=== PATIENT | female | born 1980 | race Caucasian/White ===

== ENCOUNTER 2017-09-24 20:22 | Emergency (ER) | payer OTHER ==
[2017-09-24] MEDS ORDERED: DIPHTH,PERTUSS(ACELL),TET 0.5 ML DISP.SYRIN IM ONE (20:26)
--- NOTE | 2017-09-24 20:26 | PDOC ---
Rapid Medical Evaluation Time Seen by Provider: 09/24/17 20:24 Medical Evaluation: Allergies Allergy/AdvReac Type Severity Reaction Status Date / Time codeine Allergy Verified 11/04/15 19:39 09/24/17 20:24 I have performed a brief in-person evaluation of this patient. The patient presents with a chief complaint of: laceration Pertinent physical exam findings: superficial laceration to pad of 4th digit of right hand I have ordered the following: boostrix The patient will proceed to the ED for further evaluation. Discharge Disposition - Diagnosis Laceration - Referrals Referrals: Nayana Lora MD [Primary Care Provider] - - Patient Instructions - Post Discharge Activity
[2017-09-24 20:29] VITALS: BP 136/80; PULSE 86; TEMP 98.3; BMI 41.3
--- NOTE | 2017-09-24 20:41 | PDOC ---
History of Present Illness - General Chief Complaint: Laceration Stated Complaint: LACERATION Time Seen by Provider: 09/24/17 20:24 History Source: Patient - History of Present Illness Location: reports: hands Past History - Past Medical History Allergies/Adverse Reactions: Allergies Allergy/AdvReac Type Severity Reaction Status Date / Time codeine Allergy Verified 11/04/15 19:39 Home Medications: Ambulatory Orders Lisinopril 10 mg PO ASDIR 09/24/17 Asthma: Yes COPD: No HTN: Yes Seizures: Yes - Surgical History Cholecystectomy: Yes - Immunization History Immunization Up to Date: Yes - Suicide/Smoking/Psychosocial Hx Smoking History: Never smoked Have you smoked in the past 12 months: No Information on smoking cessation initiated: No Hx Alcohol Use: No Drug/Substance Use Hx: No Substance Use Type: None Review of Systems - Review of Systems Integumentary: Yes: Other (laceration) *Physical Exam - Vital Signs Last Vital Signs Temp Pulse Resp BP Pulse Ox 98.3 F 86 17 136/80 100 09/24/17 20:25 09/24/17 20:25 09/24/17 20:25 09/24/17 20:25 09/24/17 20:25 - Physical Exam General Appearance: Yes: Appropriately Dressed. No: Apparent Distress HEENT: positive: Normal Voice Neck: positive: Supple Respiratory/Chest: negative: Respiratory Distress Extremity: positive: Other (~0.5 cm cutaneous lac to volar aspect of distal phalanx of R 4th digit) Integumentary: positive: Dry. negative: Warm Neurologic: positive: Fully Oriented, Alert, Normal Mood/Affect Procedures - Laceration/Wound Repair Right Finger Wound Length: to 2.5 cm Wound's Depth, Shape: superficial Irrigated w/ Saline: Yes Betadine Prep: Yes Wound Repaired With: Dermabond Medical Decision Making - Medical Decision Making 09/24/17 20:39 37-year-old female, no significant history here with laceration of R 4th finger after handling knife tonight. No numbness to site. See exam Cutaneous lac to R 4th digit No complications Tetanus UTD -dermabond -wound check as need in 2 days *DC/Admit/Observation/Transfer Diagnosis at time of Disposition: Laceration - Discharge Dispostion Disposition: HOME Condition at time of disposition: Good - Referrals Referrals: Nayana Lora MD [Primary Care Provider] - - Patient Instructions Printed Discharge Instructions: DI for Laceration Repair Additional Instructions: Antibiotic ointment should not be used because it can break down the adhesive prematurely. You may shower while the adhesive is on the skin, but should not soak or scrub the area for 7 to 10 days. Wet skin should be gently patted dry. The adhesive will peel off when the epithelial layer sloughs off, usually by 5 to 10 days Return to ED in 2 days for any concern for infection, worsening pain, redness, discharge, fever - Post Discharge Activity
== END 2017-09-24 21:10 | disposition home or self-care (01) ==
LOC: JER 20:22 → JERFT 20:22
PROC: 3E0234Z Introduction of Serum, Toxoid and Vaccine into Muscle, Percutaneous Approach (ICD-10-PCS; principal; 2017-09-24)
PROC: 0HQFXZZ Repair Right Hand Skin, External Approach (ICD-10-PCS; 2017-09-24)
DX: S61.214A Laceration without foreign body of right ring finger without damage to nail, initial encounter (principal); W26.0XXA Contact with knife, initial encounter; Y93.89 Activity, other specified; Y92.89 Other specified places as the place of occurrence of the external cause; Y99.8 Other external cause status
CPT/HCPCS: 12001; 90471; 90715; 99281-25

== ENCOUNTER 2019-05-08 01:19 | Observation (INO) | payer OTHER ==
--- NOTE | 2019-05-08 02:25 | PDOC ---
History of Present Illness - General Chief Complaint: Hives Stated Complaint: ALLERGIC REACTION (HIVES) Time Seen by Provider: 05/08/19 02:24 - History of Present Illness Initial Comments: 05/08/19 03:43 38 year old woman with a history of epilepsy (on trileptal), asthma and pre-DM who presents with hives on the arms, legs and torso and swelling of the R side of the upper and lower lip at 2100. She is unsure what the cause of her hives are. She denies any new food ingestions, new pets, new detergents, no new medications. She denies tightness or itching in the throat. Denies difficulty breathing, drooling or difficulty swallowing. Denies diarrhea or vomiting. She has had some allergies in the past very distantly and only reports an allergy to codeine. She has no other ocmplaints. ROS GENERAL/CONSTITUTIONAL: No fever or chills. No weakness. HEAD, EYES, EARS, NOSE AND THROAT: No sore throat. CARDIOVASCULAR: No chest pain or shortness of breath RESPIRATORY: No cough, wheezing, or hemoptysis. GASTROINTESTINAL: No nausea, vomiting, diarrhea or constipation. GENITOURINARY: No dysuria, frequency, or change in urination. MUSCULOSKELETAL: No joint or muscle swelling or pain. No neck or back pain. SKIN: No rash NEUROLOGIC: No headache, vertigo, loss of consciousness, or change in strength/ sensation. ENDOCRINE: No increased thirst. No abnormal weight change ALLERGIC/IMMUNOLOGIC: + hives or skin allergy. PE GENERAL: Awake, alert, and fully oriented, in no acute distress HEAD: No signs of trauma, normocephalic, atraumatic EYES: EOMI, sclera anicteric, conjunctiva clear ENT: oropharynx clear without exudates. Moist mucosa, no uvular swelling or deviation NECK: Normal ROM, supple LUNGS: No distress, speaks full sentences, clear to auscultation bilaterally HEART: Regular rate and rhythm, normal S1 and S2, no murmurs, rubs or gallops, peripheral pulses normal and equal bilaterally. ABDOMEN: Soft, nontender No guarding, no rebound. No masses EXTREMITIES : Normal inspection, Normal range of motion, no edema. No clubbing or cyanosis. NEUROLOGICAL: Cranial nerves II through XII grossly intact. Normal speech, normal gait, no focal sensorimotor deficits SKIN: Warm, Dry, normal turgor, + hives on the arms, legs, torso and back MDM DDX including but not limited to: allergic reaction ED Course: Patient with allergic reaction Dosed benadryl, decadron, and pepcid On reassessment patient with persistent itching and hives Atarax dosed Hives and itching spreading to face and forehead Will dose epi.3mg 1:1000 Plan for observation as patient with persistent hives and itching despite multiple medications over 4 hours of observation Sara Patel, PGY2 Emergency Medicine Past History - Past Medical History Allergies/Adverse Reactions: Allergies Allergy/AdvReac Type Severity Reaction Status Date / Time codeine Allergy Verified 05/08/19 02:29 Home Medications: Ambulatory Orders Lisinopril 10 mg PO ASDIR 09/24/17 EPINEPHrine (EPI-PEN 0.3MG) [Epipen 0.3MG -] 0.3 mg IM ASDIR #2 pens 05/08/19 Methylprednisolone [Medrol Dose Laron] 4 mg PO ASDIR #21 tablet 05/08/19 hydrOXYzine HCL LIQUID [Atarax Liquid -] 10 mg PO QID #120 ml 05/08/19 Asthma: Yes COPD: No HTN: Yes Seizures: Yes - Surgical History Cholecystectomy: Yes - Immunization History Immunization Up to Date: Yes - Psycho Social/Smoking Cessation Hx Smoking History: Never smoked Have you smoked in the past 12 months: No Hx Alcohol Use: No Drug/Substance Use Hx: No Substance Use Type: None Discharge - Discharge Information Problems reviewed: Yes Clinical Impression/Diagnosis: Allergic reaction Condition: Fair Disposition: HOME - Admission No - Additional Discharge Information Prescriptions: EPINEPHrine (EPI-PEN 0.3MG) [Epipen 0.3MG -] 0.3 mg IM ASDIR #2 pens hydrOXYzine HCL LIQUID [Atarax Liquid -] 10 mg PO QID #120 ml Methylprednisolone [Medrol Dose Laron] 4 mg PO ASDIR #21 tablet - Follow up/Referral Referrals: Nayana Lora MD [Primary Care Provider] - Becky Jack [Non Staff, Medical] - - Patient Discharge Instructions Patient Printed Discharge Instructions: DI for General Allergic Reactions Additional Instructions: You were seen in the ED for complaints of allergic reaction In the ED you were evaluated and treated for your symptoms Your results were There does not appear to be an acute need for immediate hospitalization. You are advised to follow up with your Primary Care Physician within 1 week. You were given a referral to Director Product Development and should follow up within 1 week. You were given a prescription for atarax, a medrol dose laron and an epipen which should be taken as prescribed Return to the ED immediately if you experience worsening allergic reaction, difficulty breathing, swelling of the tongue or itching in the throat. How To Use EpiPen Place the orange tip against the middle of the outer thigh. Swing and push the auto-injector firmly into the thigh until it clicks Hold firmly in place for 3 seconds count slowly, 1, 2, 3 - Post Discharge Activity
[2019-05-08 02:29] VITALS: TEMP 98.1; BMI 35.3
--- NOTE | 2019-05-08 02:32 | PDOC ---
Attending Attestation - Resident Resident Name: Sara Patel - ED Attending Attestation I have performed the following: I have examined & evaluated the patient, The case was reviewed & discussed with the resident, I agree w/resident's findings & plan - HPI HPI: 05/08/19 03:38 see resident hpi - Physicial Exam PE: 05/08/19 03:38 agree with resident exam - Medical Decision Making 05/08/19 03:39 38-year-old female with sudden onset of hives and lip swelling with no known allergic contact Plan for IV steroids, Pepcid and Benadryl in the emergency department We will observe, if airway remains intact will DC with a Medrol Dosepak as well as instructions for Benadryl Patient recommended to follow-up with an produce production team member for further evaluation as well
[2019-05-08] MEDS ORDERED: FAMOTIDINE 20 MG/50 ML IVPB 20 MG/50 ML MG IVPB ONE ×2 (03:36→03:43)
[2019-05-08] MEDS ORDERED: DEXAMETHASONE SOD PHOSPHATE 10 MG/1 ML VIAL IVPUSH ONE (03:37)
[2019-05-08] MEDS ORDERED: DEXAMETHASONE SOD PHOSPHATE 10 MG/1 ML VIAL ONE (03:42)
[2019-05-08] MEDS ORDERED: hydrOXYzine HCL 10 MG/5 ML LIQUID BULK BOTTLE PO ONE (04:39)
[2019-05-08] MEDS ORDERED: hydrOXYzine PAMOATE 25 MG CAPSULE (FP) PO ONE ×2 (05:15→05:18)
[2019-05-08] MEDS ORDERED: EPINEPHrine 1:1,000 0.3 MG/0.3 ML SYR IM ONE (05:39)
[2019-05-08] MEDS ORDERED: EPINEPHrine 1:10,000 (P-F SYR) 1 MG/10 ML DISP.SYRIN ONE (05:49)
[2019-05-08] MEDS ORDERED: EPINEPHrine/PF 1 MG/1 ML (1:1,000) AMPULE ONE (06:00)
--- NOTE | 2019-05-08 06:52 | HP ---
PCP: Nayana Lora CHIEF COMPLAINT: Hives HISTORY OF PRESENT ILLNESS: This is a 38 year old woman who comes to the ED complaining of hives. She says suddenly became itchy all over her body around 9pm. She noted some hives and so she took Benadryl and fell asleep. When she awoke, she was worse and also noted swelling of her hands, face, and lips with nasal congestion. She denies SOB, wheezing, stridor, abdominal pain. She did not feel that her throat was closing. She came to the ED and was treated with Benadryl 25 mg IVP, Pepcid 20 mg IV, and Decadron 10 mg IVP. There was no significant improvement and so she was given Vistaril 25 mg PO and epinephrine 0.3 mg IM. With this she started to improve. Currently her only complaint is that she feels shaky. She has been taking lisinopril for 3 years. She also takes HCTZ and a seizure medication. She says she tried a new vegetable last night prior to this episode but she cannot recall what it was. PAST MEDICAL HISTORY HTN Seizure disorder Asthma Pre-diabetes PAST SURGICAL HISTORY Cholecystectomy Social History: Smoking: Denies Alcohol: Denies Drugs: Denies Recent Travel: No Allergies Codeine Allergy (Verified 05/08/19 02:29) - causes seizures Home Medications Medication Instructions Recorded Lisinopril 10 mg PO DAILY 09/24/17 REVIEW OF SYSTEMS CONSTITUTIONAL: Present: edema. Absent: fever, chills, diaphoresis, generalized weakness, malaise, loss of appetite, weight change HEENT: Present: nasal congestion. Absent: rhinorrhea, throat pain, throat swelling, difficulty swallowing, mouth swelling, ear pain, eye pain, visual changes CARDIOVASCULAR: Absent: chest pain, syncope, palpitations, lightheadedness RESPIRATORY: Absent: cough, shortness of breath, dyspnea with exertion, orthopnea, wheezing, stridor, hemoptysis GASTROINTESTINAL: Absent: abdominal pain, abdominal distension, nausea, vomiting , diarrhea, constipation, melena, hematochezia GENITOURINARY: Absent: dysuria, frequency, urgency, hesitancy, hematuria, flank pain MUSCULOSKELETAL: Absent: myalgia, arthralgia, joint swelling, back pain, neck pain SKIN: Present: rash. Absent: itching, pallor HEMATOLOGIC/IMMUNOLOGIC: Absent: easy bleeding, easy bruising, lymphadenopathy, frequent infections ENDOCRINE: Absent: unexplained weight gain, unexplained weight loss, heat intolerance, cold intolerance NEUROLOGIC: Absent: headache, focal weakness or paresthesias, dizziness, unsteady gait, seizure, mental status changes, bladder or bowel incontinence PSYCHIATRIC: Absent: anxiety, depression, suicidal or homicidal ideation, hallucinations. PHYSICAL EXAMINATION Vital Signs - 24 hr 05/08/19 01:25 Temperature 98.1 F Pulse Rate 85 Respiratory 17 Rate Blood Pressure 116/87 O2 Sat by Pulse 97 Oximetry (%) GENERAL: Awake, alert, and fully oriented, in no acute distress. HEAD: (+) Swelling of face and lips. EYES: Pupils equal, round and reactive to light, extraocular movements intact, sclerae anicteric, conjunctivae clear. EARS, NOSE, THROAT: Ears normal, nares patent, oropharynx clear without exudates. Moist mucous membranes. NECK: Normal range of motion, supple without lymphadenopathy, JVD, or masses. LUNGS: Breath sounds equal, clear to auscultation bilaterally. No wheezes, and no crackles. No accessory muscle use. HEART: Regular rate and rhythm, normal S1 and S2 without murmur, rub or gallop. ABDOMEN: Obese, soft, nontender, not distended, normoactive bowel sounds, no guarding, no rebound, no masses. No hepatomegaly or splenomegaly. MUSCULOSKELETAL: Normal range of motion at all joints. No bony deformities or tenderness. No CVA tenderness. UPPER EXTREMITIES: 2+ pulses, warm, well-perfused. No cyanosis. No clubbing. (+ ) Swelling of hands. LOWER EXTREMITIES: 2+ pulses, warm, well-perfused. No calf tenderness. No peripheral edema. NEUROLOGICAL: Cranial nerves II-XII intact. Normal speech. Gait not observed. PSYCHIATRIC: Cooperative. Good eye contact. Appropriate mood and affect. SKIN: Warm, dry, normal turgor, no rashes or lesions noted, normal capillary refill. ASSESSMENT/PLAN: This is a 38 year old woman with a history of HTN, seizure disorder, asthma, pre -diabetes who presented to the ED with sudden-onset of hives followed by swelling of her hands, lips, and face. 1. Angioedema and hives - Improving after epinephrine - Benadryl as needed - Discontinue lisinopril - Patient will find out which new vegetable she ate prior to this episode - If she continues to improve, she can be discharged later today with EpiPen 2. HTN - Discontinue lisinopril - Hold HCTZ for now as BP was low 3. Seizure disorder - Patient is not sure of which seizure medication she is taking 4. Asthma - Stable 5. Pre-diabetes - Monitor fingersticks as patient was treated with Decadron Family Medical History Family History: Unremarkable Visit type - Emergency Visit Emergency Visit: Yes ED Registration Date: 05/08/19 Care time: The patient presented to the Emergency Department on the above date and was hospitalized for further evaluation of their emergent condition. - New Patient This patient is new to me today: Yes Date on this admission: 05/08/19 - Critical Care Critical Care patient: No
[2019-05-08] MEDS ORDERED: ONDANSETRON 4 MG/2 ML VIAL IVPUSH PRN (06:54)
[2019-05-08] MEDS ORDERED: INSULIN SLIDING SCALE (NOVOLOG) 1 VIAL SQ SCH (07:00)
[2019-05-08 07:50] LABS: BASO % 0.1 % (0-2.0); EOS % 0.1 % (0-4.5); HEMATOCRIT 32.6 % (32.4-45.2); HEMOGLOBIN 10.9 GM/dL (10.7-15.3); LYMPH % 9.3 % (8-40); MCH 28.6 pg (25.7-33.7); MCHC 33.5 g/dl (32.0-36.0); MEAN CELL VOLUME 85.2 fl (80-96); MEAN PLT VOLUME 7.3 fl (7.5-11.1); MONO % 0.6 % (3.8-10.2); NEUT % 89.9 % (42.8-82.8); PLATELET COUNT 452 K/MM3 (134-434); RBC 3.82 M/mm3 (3.60-5.2); RDW 13.7 % (11.6-15.6); WHITE BLOOD COUNT 13.3 K/mm3 (4.0-10.0)
[2019-05-08 08:13] LABS: ALBUMIN 3.9 g/dl (3.4-5.0); BILIRUBIN,TOTAL 0.3 mg/dL (0.2-1); BLOOD UREA NITROGEN 14.1 mg/dL (7-18); CALCIUM 9.1 mg/dL (8.5-10.1); POTASSIUM 3.7 mmol/L (3.5-5.1); TOT PROT 7.4 g/dl (6.4-8.2)
[2019-05-08] MEDS ORDERED: predniSONE 20 MG TABLET (UD) PO ONE (09:07)
--- NOTE | 2019-05-08 09:21 | DS ---
Physical Exam: SUBJECTIVE: Patient seen and examined in the ED. Patient reports feeling much better, no nausea, no vomiting, no difficulty with breathing, no chest pain. Had breakfast (eggs and coffee) without difficulty swallowing. She has been allergy tested a year ago, does not recall the results but told she was allergic to something. She agrees to follow up with personal shopper. OBJECTIVE: no airway compromise, tolerated breakfast, back to her baseline very mild edema of upper lip, no edema/swelling on inspection of oral cavity lungs clear mild wbc elevation s/p steriods Vital Signs Period Temp Pulse Resp BP Sys/Bob Pulse Ox Last 24 Hr 98.1 F 85 17 116/87 97 PHYSICAL EXAM GENERAL: The patient is awake, alert, and fully oriented, in no acute distress. HEAD: Normal with no signs of trauma. upper lip with mild swelling, no airway edema/swelling EYES: PERRL, extraocular movements intact, sclera anicteric, conjunctiva clear. ENT: oropharynx clear without exudates, moist mucous membranes. NECK: Trachea midline, full range of motion, supple. LUNGS: Breath sounds equal, clear to auscultation bilaterally, no wheezes, no crackles, no accessory muscle use. HEART: Regular rate and rhythm ABDOMEN: Soft, nontender, nondistended, normoactive bowel sounds, no guarding, no rebound, no hepatosplenomegaly, no masses. EXTREMITIES: left hand with mild edema NEUROLOGICAL: Normal speech, gait not observed. PSYCH: Normal mood, normal affect. SKIN: Warm, dry, normal turgor, no rashes or lesions noted. LABS Laboratory Results - last 24 hr 05/08/19 05/08/19 07:30 07:30 WBC 13.3 H RBC 3.82 Hgb 10.9 Hct 32.6 D MCV 85.2 MCH 28.6 MCHC 33.5 RDW 13.7 Plt Count 452 H D MPV 7.3 L D Absolute Neuts (auto) 12.0 H Neutrophils % 89.9 H D Lymphocytes % 9.3 D Monocytes % 0.6 L D Eosinophils % 0.1 D Basophils % 0.1 Nucleated RBC % 0 Sodium 138 Potassium 3.7 Chloride 104 Carbon Dioxide 29 Anion Gap 6 L BUN 14.1 Creatinine 1.0 Est GFR (CKD-EPI)AfAm 83.94 Est GFR (CKD-EPI)NonAf 72.42 Random Glucose 203 H Calcium 9.1 Total Bilirubin 0.3 AST 17 ALT 19 Alkaline Phosphatase 61 Total Protein 7.4 Albumin 3.9 HOSPITAL COURSE: Date of Admission:05/08/19 Date of Discharge: 05/08/19 Minutes to complete discharge: 45 Discharge Summary Problems reviewed: Yes Reason For Visit: ALLERGIC REACTION Current Active Problems Allergic reaction (Acute) Condition: Improved - Instructions Diet, Activity, Other Instructions: Mrs Connell. You were observed at [facility] for possible reaction to either food or a medication. Here are our discharge instructions: Allergy: We treated you with an epinepherine, sterioids and benadryl. We will be sending you home with a Prednisone taper as follows Prednisone 40mg today before you go home Prednisone 40mg tomorrow 05/09/2019 in the morning with breakfast Prednisone 30mg on 05/10/2019 with breakfast Prednisone 20mg on 05/11/2009 with breakfast Prednisone 10mg on 05/12/2019 with breakfast - This is your last dose of prednisone Take Benadryl every 6 hours as needed for the next 48 hours, but careful not to drive while using Benadryl We will call an Epipen to your home pharmacy. [facility] for [facility] Blood Pressure: Your blood pressure has been in normal ranges here, stop taking the Lisinopril. You can continue taking the HCTZ I have called in a blood pressure cuff for your home use so that you can monitor your blood pressure at home, please take your blood pressure every morning and record the number. Show your primary care doctor your blood pressure readings so that they can adjust your medications. Thank you for allowing us to care for you. Questions? Please call me [facility] COMMUNITY PLANNING TECHNICIAN [phone] [facility] Referrals: Nayana Lora MD [Primary Care Provider] - Kayleen Ag MD [Staff Physician] - Disposition: HOME - Home Medications Comprehensive Discharge Medication List: Ambulatory Orders Amlodipine Besylate [Norvasc -] 5 mg PO DAILY #30 tablet 05/08/19 Blood Pressure Test Kit-Wrist [[employer] Wrist Bp Monitor] 1 each MC DAILY #1 kit 05/08/19 Epinephrine [Epipen 2-Laron] 0.3 mg IM ASDIR #1 kit 05/08/19 Prednisone 40 mg PO DAILY #20 tablet 05/08/19 Problem List - Problems (1) Allergic reaction Assessment/Plan: Treated in the ED with dexamethsone, epinephrine, benadryl airway patent, lungs clear, no difficulty swallowing, no hives seen start prednisone taper, give first dose now discharge with referrals to ENT Patient states she ate asparagus and thinks it may have caused her to have a reaction. advised her to stop lisinopril. will adjust her allergy list here. Code(s): T78.40XA - ALLERGY, UNSPECIFIED, INITIAL ENCOUNTER (2) Hypertension Assessment/Plan: stop lisinopril as it may have caused an allergic reaction Bp stable here start on norvac 5, will have her monitor her BP at home also follow up with pcp Code(s): I10 - ESSENTIAL (PRIMARY) HYPERTENSION (3) Pre-diabetes Assessment/Plan: outpatient follow up with pcp Code(s): R73.03 - PREDIABETES (4) Seizure disorder Assessment/Plan: continue home medications Code(s): G40.909 - EPILEPSY, UNSP, NOT INTRACTABLE, WITHOUT STATUS EPILEPTICUS This patient is new to me today: Yes Date on this admission: 05/08/19 Emergency Visit: Yes ED Registration Date: 05/08/19 Care time: The patient presented to the Emergency Department on the above date and was hospitalized for further evaluation of their emergent condition. Critical Care patient: No - Discharge Referral [facility]erred to [facility] Med P.C.: No
[2019-05-08 10:33] VITALS: PULSE 90
[2019-05-08 10:50] VITALS: BP 133/66
== END 2019-05-08 11:00 | disposition home or self-care (01) ==
LOC: JER 01:19 → JERBED 06:44
PROVIDERS: ADMIT Internal Medicine; ATTEND Nurse Practitioner Family
PROC: 3E033GC Introduction of Other Therapeutic Substance into Peripheral Vein, Percutaneous Approach (ICD-10-PCS; principal; 2019-05-08)
PROC: 3E023GC Introduction of Other Therapeutic Substance into Muscle, Percutaneous Approach (ICD-10-PCS; 2019-05-08)
PROC: 3E023GC Introduction of Other Therapeutic Substance into Muscle, Percutaneous Approach (ICD-10-PCS; 2019-05-08)
PROC: 3E013VG Introduction of Insulin into Subcutaneous Tissue, Percutaneous Approach (ICD-10-PCS; 2019-05-08)
DX: L50.0 Allergic urticaria (principal); T78.3XXA Angioneurotic edema, initial encounter; I10 Essential (primary) hypertension; G40.909 Epilepsy, unspecified, not intractable, without status epilepticus; J45.909 Unspecified asthma, uncomplicated; R73.03 Prediabetes; Z88.5 Allergy status to narcotic agent
CPT/HCPCS: 36415; 80053; 83036; 85025; 96365; 96372; 96375; 99283-25; G0378; J1100

== ENCOUNTER 2019-05-31 06:06 | Day surgery (SDC) | payer OTHER ==
[2019-05-30 15:23] VITALS: BMI 37.2
[2019-05-31] MEDS ORDERED: MIDAZOLAM HCL 2 MG/2 ML SINGLE DOSE VIAL ONE ×2 (07:18→07:19)
[2019-05-31] MEDS ORDERED: PROPOFOL 20 ML ONE (07:18)
--- NOTE | 2019-05-31 07:40 | HP ---
Admitting History and Physical - Admission Chief Complaint: Prolonged menstrual bleeding History of Present Illness: 38 yo Para 0, with h/o hypertension, asthma and seizure, is pre op for D&C hysteroscopy. She was diagnosed with complex endometrial hyperplasia after endometrial biopsy for vaginal bleeding. History Source: Patient Limitations to Obtaining History: No Limitations - Past Medical History ...LMP: 04/09/19 ...LMP Comment: bleeding for a month ...: No ...Para: 0 Heme/Onc: Yes: Anemia - Past Surgical History Past Surgical History: Yes: None - Smoking History Smoking history: Never smoked Have you smoked in the past 12 months: No - Alcohol/Substance Use Hx Alcohol Use: Yes (occas) - Social History Usual Living Arrangement: Yes: Alone History of Recent Travel: No Home Medications - Allergies Allergies/Adverse Reactions: Allergies Allergy/AdvReac Type Severity Reaction Status Date / Time amlodipine Allergy "feet Verified 05/31/19 06:56 swell" asparagus Allergy "hives" Verified 05/31/19 06:56 codeine Allergy "seizure" Verified 05/31/19 06:56 lisinopril Allergy "?hives" Verified 05/31/19 06:56 - Home Medications Home Medications: Ambulatory Orders Cetirizine HCl 10 mg PO PRN PRN 05/30/19 Megestrol Acetate Oral Susp [Megace Oral Suspension -] 400 mg PO BID 05/30/19 Oxcarbazepine 150 mg PO BID 05/30/19 Family Medical History Family History: Unremarkable Review of Systems - Review of Systems Constitutional: reports: No Symptoms Eyes: reports: No Symptoms HENT: reports: No Symptoms Neck: reports: No Symptoms Cardiovascular: reports: No Symptoms Respiratory: reports: No Symptoms Gastrointestinal: reports: No Symptoms Genitourinary: reports: Vaginal Bleeding Breasts: reports: No Symptoms Reported Musculoskeletal: reports: No Symptoms Neurological: denies: Headache Psychiatric: reports: No Symptoms Pain Intensity: 0 Physical Examination Vital Signs: Vital Signs Temperature 98.4 F 05/31/19 06:54 Pulse Rate 79 05/31/19 06:54 Respiratory Rate 05/31/19 06:54 Blood Pressure 133/71 05/31/19 06:54 O2 Sat by Pulse Oximetry (%) 99 05/31/19 06:45 Constitutional: No: No Distress Eyes: Yes: Conjunctiva Clear HENT: Yes: Atraumatic Neck: Yes: Supple Cardiovascular: Yes: Regular Rate and Rhythm Respiratory: Yes: Regular Gastrointestinal: Yes: Normal Bowel Sounds Breast(s): Yes: WNL Musculoskeletal: Yes: WNL Extremities: Yes: WNL Integumentary: Yes: WNL Neurological: Yes: Alert, Oriented ...Motor Strength: WNL Psychiatric: Yes: Alert, Oriented Problem List - Problems (1) Endometrial hyperplasia, complex Problems reviewed: Yes Code(s): N85.01 - BENIGN ENDOMETRIAL HYPERPLASIA Assessment/Plan Complex endometrial hyperplasia Pre op for D&C hysteroscopy Consent signed Anesthesia to see patient
[2019-05-31] MEDS ORDERED: DEXAMETHASONE SOD PHOSPHATE 4 MG/1 ML VIAL ONE (07:47)
[2019-05-31] MEDS ORDERED: KETOROLAC TROMETHAMINE 30 MG/1 ML VIAL ONE (08:01)
[2019-05-31] MEDS ORDERED: ONDANSETRON 4 MG/2 ML VIAL IVPUSH PRN (08:03)
[2019-05-31] MEDS ORDERED: oxyCODONE HCL 5 MG TABLET PO PRN (08:03)
--- NOTE | 2019-05-31 08:13 | OP ---
Operative Note - Note: Operative Date: 05/31/19 Pre-Operative Diagnosis: Complex endometrial hyperplasia Operation: D&C Hysteroscopy Findings: Multiple polyps Post-Operative Diagnosis: Same as Pre-op Surgeon: Ayana Adan Anesthesia: General Specimens Removed: Endometrial curettings Estimated Blood Loss (mls): 5
[2019-05-31] MEDS ORDERED: LACTATED RINGERS SOLUTION 1,000 ML IV SCH (08:15)
[2019-05-31] MEDS ORDERED: ONDANSETRON 4 MG/2 ML VIAL ONE (08:32)
[2019-05-31] MEDS ORDERED: ONDANSETRON 4 MG/2 ML VIAL IVPUSH ONE (08:45)
[2019-05-31 12:30] VITALS: BP 130/79; PULSE 80; TEMP 98
--- NOTE | 2019-06-01 15:07 | OP ---
DATE OF OPERATION: 05/31/2019 PREOPERATIVE DIAGNOSIS: Complex endometrial hyperplasia. POSTOPERATIVE DIAGNOSIS: Complex endometrial hyperplasia. PROCEDURE: Dilatation and curettage, hysteroscopy. SURGEON: Ayana Adan MD ANESTHESIA: General. COMPLICATIONS: None. ESTIMATED BLOOD LOSS: 5 mL. DESCRIPTION OF PROCEDURE: Patient was taken to the operating room where general anesthesia was administered. Patient was then placed in lithotomy position. She was then prepped and draped in proper sterile fashion. A weighted speculum was placed in the vagina. The anterior lip of the cervix was grasped with single-tooth tenaculum. Then, a 5-mm hysteroscope was then gently introduced into the uterine cavity. The cavity was visualized, and both ostia were visualized. There were several polyps noted in the cavity. A sharp curettage was then performed, and using polyp forceps, several polyps were removed from the cavity. A second look with the hysteroscope was then made, and then, once finished, the instruments were removed. The patient was taken out of lithotomy position. She was taken to PACU in stable condition. PATHOLOGY: Endometrial curettings. Hernandez [id number]
--- NOTE | 2019-06-01 15:45 | PATH ---
Surgical Pathology Report Patient Name: NORA LACKEY Med. Rec. #: [id number] /Age/Gender: 1980 (Age: 38) / F Account: [id number] Location: [facility] Taken: 05/31/2019 Received: 05/31/2019 Reported: 06/01/2019 Physicians: Ayana Adan M.D. Specimen(s) Received ENDOMETRIAL CURETTINGS AND POLYPS Clinical History Complex endometrial hyperplasia Final Diagnosis ENDOMETRIAL CURETTINGS AND POLYP: FRAGMENTS OF ENDOMETRIAL POLYP WITH FOCAL INFARCTION. SEPARATE FEW FRAGMENTS OF PROLIFERATIVE ENDOMETRIAL GLANDS WITHOUT STROMA. SEPARATE FRAGMENTS OF ENDOCERVICAL TISSUE WITH SQUAMOUS METAPLASIA. Comment: Endometrial polyps show angulated and cystically dilated glands without atypia. History of complex endometrial hyperplasia noted. Intradepartmental case reviewed with concordance on diagnosis, 06/01/2019. Electronically Signed Cherelle Rivera M.D. Gross Description Received in formalin labeled "endometrial curettings and polyp," is a 4.5 x 4.0 x 0.3 cm aggregate of baldwin-pink soft tissue fragments. The formalin is filtered and the specimen is entirely submitted in 4 cassettes. DL/05/31/2019 saudi/05/31/2019
== END 2019-05-31 12:33 | disposition home or self-care (01) ==
LOC: JASU-SURG 06:06
PROVIDERS: ATTEND Obstetrics & Gynecology
PROC: 0UDB8ZX Extraction of Endometrium, Via Natural or Artificial Opening Endoscopic, Diagnostic (ICD-10-PCS; principal; 2019-05-31 07:30)
DX: N85.01 Benign endometrial hyperplasia (principal)
CPT/HCPCS: 84703; 94760

== ENCOUNTER 2021-02-22 19:17 | Emergency (ER) | payer OTHER ==
[2021-02-22 19:41] VITALS: BP 131/80; PULSE 101; TEMP 98.5; BMI 41.1
[2021-02-22] MEDS ORDERED: FAMOTIDINE 20 MG TABLET PO ONE (21:03)
[2021-02-22] MEDS ORDERED: FAMOTIDINE 20 MG TABLET ONE (21:06)
[2021-02-22 21:31] LABS: BASO % 0.5 % (0-2.0); EOS % 1.5 % (0-4.5); HEMATOCRIT 37.1 % (32.4-45.2); HEMOGLOBIN 12.8 GM/dL (10.7-15.3); MCHC 34.6 g/dl (32.0-36.0); MEAN CELL VOLUME 78.1 fl (80-96); MEAN PLT VOLUME 7.3 fl (7.5-11.1); MONO % 4.7 % (3.8-10.2); NEUT % 71.3 % (42.8-82.8); PLATELET COUNT 365 10^3/uL (134-434); RBC 4.75 M/mm3 (3.60-5.2); RDW 14.7 % (11.6-15.6); WHITE BLOOD COUNT 10.9 K/mm3 (4.0-10.0)
[2021-02-22 21:41] LABS: EPI CELLS 2 /uL (0-25.1); HYALINE CASTS 0 /uL (0-3.1); PH,URINE 6.5 (5.0-8.0); URINE APPEARANCE CLEAR; URINE BACTERIA 2 /uL (0-1359); URINE BILIRUBIN NEGATIVE (NEGATIVE); URINE COLOR YELLOW; URINE GLUCOSE (UA) NEGATIVE (NEGATIVE); URINE KETONE NEGATIVE (NEGATIVE); URINE LEUK ESTERASE NEGATIVE (NEGATIVE); URINE NITRITE NEGATIVE (NEGATIVE); URINE PROTEIN NEGATIVE (NEGATIVE); URINE RBC 27 /uL (0-23.9); URINE UROBILINOGEN 0.2 mg/dL (0.2-1.0); URINE WBC 3 /uL (0-25.8)
[2021-02-22 21:45] LABS: CALCIUM 9.1 mg/dL (8.5-10.1)
[2021-02-22 21:47] LABS: BLOOD UREA NITROGEN 10.4 mg/dL (7-18)
[2021-02-22 21:50] LABS: BILIRUBIN,TOTAL 0.4 mg/dL (0.2-1)
[2021-02-22 21:51] LABS: TOT PROT 8.4 g/dl (6.4-8.2)
== END 2021-02-22 21:30 | disposition left against medical advice (07) ==
LOC: JER 19:17 → JERFT 19:17
DX: H00.015 Hordeolum externum left lower eyelid (principal); R10.13 Epigastric pain
CPT/HCPCS: 36415; 80053; 81003; 84703; 85025; 87086; 99283-25

== ENCOUNTER 2021-03-17 12:25 | Emergency (ER) | payer OTHER ==
[2021-03-17 12:38] VITALS: BP 136/73; PULSE 100; TEMP 98.6; BMI 41.1
[2021-03-17] MEDS ORDERED: ONDANSETRON *ODT* 4 MG TABLET SL ONE (12:55)
[2021-03-17] MEDS ORDERED: ONDANSETRON *ODT* 4 MG TABLET ONE (12:56)
== END 2021-03-17 13:33 ==
LOC: JERFT 12:25
DX: Z77.098 Contact with and (suspected) exposure to other hazardous, chiefly nonmedicinal, chemicals (principal)
CPT/HCPCS: 99283-25; Q0162

== ENCOUNTER 2021-11-10 15:09 | Emergency (ER) | payer OTHER ==
[2021-11-10 15:22] VITALS: BP 120/78; PULSE 94; TEMP 98.3; BMI 41.0
[2021-11-10] MEDS ORDERED: ONDANSETRON *ODT* 4 MG TABLET SL ONE (16:26)
[2021-11-10] MEDS ORDERED: ONDANSETRON *ODT* 4 MG TABLET ONE (16:28)
== END 2021-11-10 18:35 | disposition home or self-care (01) ==
LOC: JER 15:09
DX: R11.0 Nausea (principal)
CPT/HCPCS: 93005; 93010; 99283-25; Q0162

== ENCOUNTER 2022-09-19 14:51 | Emergency (ER) | payer OTHER ==
[2022-09-19 15:18] VITALS: TEMP 98.9; BMI 43.8
[2022-09-19] MEDS ORDERED: SODIUM CHLORIDE 0.9% 500 ML INFUS.BAG IV ONE (15:54)
[2022-09-19 15:59] LABS: BASO % 0.3 % (0-2.0); EOS % 1.3 % (0-4.5); HEMATOCRIT 36.3 % (32.4-45.2); HEMOGLOBIN 12.2 GM/dL (10.7-15.3); LYMPH % 14.4 % (8-40); MCH 27.2 pg (25.7-33.7); MCHC 33.5 g/dl (32.0-36.0); MEAN CELL VOLUME 81.3 fl (80-96); MEAN PLT VOLUME 7.1 fl (7.5-11.1); MONO % 5.1 % (3.8-10.2); NEUT % 78.9 % (42.8-82.8); PLATELET COUNT 352 10^3/uL (134-434); RBC 4.47 M/mm3 (3.60-5.2); RDW 14.9 % (11.6-15.6); WHITE BLOOD COUNT 10.2 K/mm3 (4.0-10.0)
[2022-09-19 16:07] LABS: POTASSIUM 3.5 mmol/L (3.5-5.1)
[2022-09-19 16:09] LABS: CALCIUM 8.8 mg/dL (8.5-10.1)
[2022-09-19 16:10] LABS: ALBUMIN 3.5 g/dl (3.4-5.0); BLOOD UREA NITROGEN 12.8 mg/dL (7-18); MAGNESIUM 2.3 mg/dL (1.8-2.4)
[2022-09-19 16:13] LABS: CREATININE 0.8 mg/dL (0.55-1.3); PHOSPHOROUS 3.3 mg/dL (2.5-4.9)
[2022-09-19 16:14] LABS: TOT PROT 7.3 g/dl (6.4-8.2)
[2022-09-19 16:15] LABS: BILIRUBIN,TOTAL 0.2 mg/dL (0.2-1)
[2022-09-19 17:25] VITALS: BP 129/83; PULSE 84; RESP 16
== END 2022-09-19 17:35 | disposition home or self-care (01) ==
LOC: JER 14:51
DX: R00.2 Palpitations (principal); R11.0 Nausea
CPT/HCPCS: 36415; 71045-TC-FY; 80053; 82962; 83690; 83735; 84100; 84443; 84484; 84703; 85025; 93005; 93010; 99285-25

== ENCOUNTER 2024-01-09 18:25 | Emergency (ER) | payer OTHER ==
[2024-01-09 18:42] VITALS: BP 139/91; PULSE 82; RESP 18; TEMP 98.2; BMI 43.4
== END 2024-01-09 20:29 | disposition home or self-care (01) ==
LOC: JERFT 18:25
DX: L72.11 Pilar cyst (principal)
CPT/HCPCS: 99283-25